=== PATIENT | female | born 1955 | race Caucasian/White ===

== ENCOUNTER 2022-05-26 05:48 | Day surgery (SDC) | payer OTHER ==
[2022-05-25 15:10] VITALS: BMI 29.9
[2022-05-26 08:38] VITALS: TEMP 98
[2022-05-26 08:55] VITALS: RESP 18
[2022-05-26 14:23] VITALS: BP 129/78; PULSE 77
== END 2022-05-26 10:00 | disposition home or self-care (01) ==
LOC: JASU-ENDO 05:48
PROVIDERS: ATTEND Internal Medicine Gastroenterology
PROC: 0DB68ZX Excision of Stomach, Via Natural or Artificial Opening Endoscopic, Diagnostic (ICD-10-PCS; 2022-05-26)
PROC: 0DB28ZX Excision of Middle Esophagus, Via Natural or Artificial Opening Endoscopic, Diagnostic (ICD-10-PCS; 2022-05-26)
PROC: 0DB38ZX Excision of Lower Esophagus, Via Natural or Artificial Opening Endoscopic, Diagnostic (ICD-10-PCS; principal; 2022-05-26 10:30)
DX: K29.50 Unspecified chronic gastritis without bleeding (principal); K20.90 Esophagitis, unspecified without bleeding
CPT/HCPCS: 88305-TC; 88312-TC; 88342-TC